=== PATIENT | male | born 1960 | race Caucasian/White ===

== ENCOUNTER → 2020-05-31 | Outpatient (CLI) | payer BC ==
--- NOTE | 2020-05-31 10:55 | MR ---
EXAMINATION TYPE: MR angio head wo con DATE OF EXAM: 05/31/2020 COMPARISON: NONE HISTORY: Intermittent shooting pains in the head, family hx brain aneurysm TECHNIQUE: Utilizing 3-D [id number] intracranial MRA of the [place] was performed. FINDINGS: The vertebrobasilar and carotid systems are patent. There is no sizable aneurysm or vascular malform ation. IMPRESSION: 1. No evidence of vascular malformation or sizable aneurysm.
--- NOTE | 2020-06-01 02:46 | MR ---
EXAMINATION TYPE: MR venography head wo con DATE OF EXAM: 05/31/2020 COMPARISON: None HISTORY: Intermittent shooting pains in the head, family hx brain aneurysm MR venographic images were obtained of the brain without contrast. Images show normal venous signal pattern in the superior sagittal sinus. There is normal venous patte rn in the straight sinus. There is bilateral venous flow in the jugular veins. There appears to be fi lling defect within the left side sigmoid sinus. This measures 2 cm in length with more than 50% occl usion of the brain. The remainder of exam is unremarkable. IMPRESSION: Exam shows evidence of nonocclusive thrombus in the left side sigmoid sinus.
== END | disposition home or self-care (01) ==
LOC: RADMRIMAIN 09:44
PROVIDERS: ATTEND Internal Medicine
DX: Z13.6 Encounter for screening for cardiovascular disorders (principal); G08 Intracranial and intraspinal phlebitis and thrombophlebitis; Z82.49 Family history of ischemic heart disease and other diseases of the circulatory system
CPT/HCPCS: 70544

== ENCOUNTER → 2021-04-07 | Outpatient (CLI) | payer BC ==
[~2021-04-07] MED LIST: CASIRIVIMAB (REGN10933) (EUA) 600 MG, IMDEVIMAB (REGN10987) (EUA) 600 MG in SODIUM CHLO... IVPB ONE; SODIUM CHLORIDE 0.9% 50 ML IVPB ONE; SODIUM CHLORIDE 0.9% 500 ML 500 ML in EMPTY BAG 1 BAG IV PRN
[2021-04-07 13:56] VITALS: BP 169/90; PULSE 80; RESP 16; TEMP 98.9
== END ==
LOC: PROCWHC3 13:31
PROVIDERS: ATTEND Internal Medicine
DX: U07.1 COVID-19 (principal); E66.9 Obesity, unspecified; I10 Essential (primary) hypertension; Z68.32 Body mass index [BMI] 32.0-32.9, adult
CPT/HCPCS: 96360; Q0243; M0243; 96361

== ENCOUNTER → 2022-10-30 | Outpatient (CLI) | payer BC ==
--- NOTE | 2022-10-30 09:31 | CT ---
EXAMINATION TYPE: CT soft tissue neck w con CT DLP: 678.10 mGycm, Automated exposure control for dose reduction was used. DATE OF EXAM: 10/30/2022 8:42 AM COMPARISON: None. CLINICAL INDICATION:Male, 62 years old with history of R22.1, Throat fullness, difficulty swallowing and speaking TECHNIQUE: Standard enhanced CT of the neck. Axial sections with coronal and sagittal reformats were obtained. Contrast used:100 mL of Isovue 300 with IV Contrast, Oral contrast used: none. FINDINGS: Brain: Visualized portions are grossly unremarkable. Orbits: Unremarkable Sinuses: Grossly unremarkable. Spaces of the neck: Clear and symmetric. Musculoskeletal: No acute osseous pathology. Lymph nodes: Multiple nonenlarged lymph nodes are seen along both anterior chains of the neck. Vascular structures: Visualized major arteries are patent without evidence of aneurysm. Thoracic Inlet/airway: Airway is patent. The lung apices are clear. No evidence for mediastinal mass in the visualized upper mediastinum aortic arch is unremarkable. Soft tissues/Thyroid: Thyroid and remainder of the soft tissues are unremarkable. Other: none. IMPRESSION No evidence for mass or abnormality to explain the patient's difficulty swallowing. Consider direct v isualization of the vocal cords and further workup possibly with modified barium swallow with speech pathology.
== END | disposition home or self-care (01) ==
LOC: RADCTMAIN 08:06
PROVIDERS: ATTEND Internal Medicine
DX: R22.1 Localized swelling, mass and lump, neck (principal)
CPT/HCPCS: 70491; Q9967

== ENCOUNTER → 2022-12-20 | Outpatient (CLI) | payer BC ==
--- NOTE | 2022-12-20 12:49 | FL ---
EXAMINATION TYPE: FL barium swallow DATE OF EXAM: 12/20/2022 CLINICAL INDICATION: 62-year-old male K21.9, reflux disease COMPARISON: None Total Fluoroscopy Time: 2 minutes 29 seconds DOSE AREA PRODUCT (DAP) UGY*M,MGY*CM: 581.9 51 images obtained. FINDINGS: The swallowing mechanism is normal. The patient has high shoulders. On the prone LÓPEZ drinking image, we note moderate hypertrophy of the cricopharyngeus muscle. Otherwise, the hypopharyngeal anatomy is preserved. The thoracic portion has a normal course and caliber. However, there are moderate to markedly blunted secondary stripping waves and mild tertiary peristaltic contractions noted. The mucosa is normal and no persistent filling defect is encountered. There is a tiny sliding hiatal hernia visualized. No gastroesophageal reflux seen during the course o f the exam. IMPRESSION: 1. Moderate hypertrophy of the cricopharyngeus which may partly contribute to the patient's symptoms. 2. Moderate esophageal dysmotility with significantly blunted primary and secondary peristaltic contr actions. This becomes more apparent when the patient is prone or supine. 3. Tiny sliding hiatal hernia. No gastroesophageal reflux seen during the course of the exam.
== END | disposition home or self-care (01) ==
LOC: RADUSWWP 10:46
PROVIDERS: ATTEND Otolaryngology
DX: K22.4 Dyskinesia of esophagus (principal); K21.9 Gastro-esophageal reflux disease without esophagitis; K44.9 Diaphragmatic hernia without obstruction or gangrene
CPT/HCPCS: 74220

== ENCOUNTER 2023-07-03 08:32 | Day surgery (SDC) | payer BC ==
[2023-07-03] MEDS ORDERED: LACTATED RINGERS 1,000 ML IV ONE (09:04)
[2023-07-03 09:30] VITALS: TEMP 97.4
[2023-07-03] MEDS ORDERED: fentaNYL (PF) 50 MCG/ML 2 ML AMP ONE (09:39)
[2023-07-03] MEDS ORDERED: MIDAZOLAM 2 MG/2 ML VIAL ONE (09:39)
[2023-07-03] MEDS ORDERED: PROPOFOL 10 MG/ML 20 ML VIAL IV ONE (09:39)
--- NOTE | 2023-07-03 10:01 | P.PCN ---
Date of Procedure: 07/03/23 Procedure(s) Performed: BRIEF HISTORY: Patient is a 63-year-old, pleasant, white male scheduled for an upper endoscopy as a part of evaluation of throat tightness and dysphagia for the last 5 years duration.. PROCEDURE PERFORMED: Esophagogastroduodenoscopy with biopsy PREOPERATIVE DIAGNOSIS: Throat tightness and dysphagia of 5 years duration. IV sedation per anesthesia. PROCEDURE: After informed consent was obtained, the patient was brought into the endoscopy unit. IV sedation was administered by Anesthesia under continuous monitoring. Initially the Olympus GIF-140 video endoscope was inserted into the mouth. Esophagus intubated without any difficulty. It was gradually advanced into the stomach and duodenum and carefully examined. The bulb and the second part of the duodenum appeared normal. The scope at this time was withdrawn to the stomach, adequately insufflated with air, and upon careful examination, mucosa of the antrum had mild gastritis and biopsies were done from this area. Mucosa of the, body, cardia and the fundus appeared normal. The scope was then withdrawn into the esophagus. The GE junction was located at 41 cm from the incisors. 2 superficial erosions at the GE junction consistent with LA grade B reflux esophagitis. The rest of the esophagus appeared normal. The proximal cervical esophagus appeared normal and the patient tolerated the procedure well. IMPRESSION: 1. Mild antral gastritis. 2. 2 superficial erosions at the GE junction consistent with LA grade B reflux esophagitis 3. Proximal cervical esophagus appeared normal with no evidence of esophageal stricture. RECOMMENDATIONS: The findings of this examination were discussed with the patient as well as his family. He was advised to follow with the biopsy results. Recommend a trial of Prilosec 20 mg daily for 3 months to see if he has any improvement in his symptoms.
[2023-07-03 10:45] VITALS: BP 121/69; PULSE 84; RESP 16
== END 2023-07-03 10:54 | disposition home or self-care (01) ==
LOC: ORWHC2ENDO 08:32
PROVIDERS: ATTEND Internal Medicine Gastroenterology
DX: K29.50 Unspecified chronic gastritis without bleeding (principal); K21.00 Gastro-esophageal reflux disease with esophagitis, without bleeding; I10 Essential (primary) hypertension; E78.5 Hyperlipidemia, unspecified; E03.9 Hypothyroidism, unspecified; F10.90 Alcohol use, unspecified, uncomplicated; F12.90 Cannabis use, unspecified, uncomplicated; Z79.890 Hormone replacement therapy; Z79.899 Other long term (current) drug therapy; Z98.890 Other specified postprocedural states
CPT/HCPCS: 88305; 43239; J2250; J3010; J2704

== ENCOUNTER → 2024-03-16 | Outpatient (CLI) | payer BC ==
--- NOTE | 2024-03-16 18:53 | CT ---
EXAMINATION TYPE: CT chest abdomen pelvis without contrast. CT angiogram chest abdomen and pelvis. CT DLP: 1281.5 mGycm, Automated exposure control for dose reduction was used. DATE OF EXAM: 03/16/2024 5:40 PM COMPARISON: 10/30/2022, 05/08/2011. CLINICAL INDICATION: Male, 63 years old with history of R07.2 PRECORDIAL PAIN; PHH, Chest and back pa in. TECHNIQUE: Noncontrast CT chest abdomen and pelvis followed by CT angiogram chest abdomen pelvis. Dissection protocol: Multiple axial CT images of the chest, abdomen, and pelvis were obtained prior a nd to the administration of IV contrast. 3-D reformats and maximum intensity projection format were p erformed on a separate workstation. Contrast used:100ml mL of Isovue 370 with IV Contrast, Oral contrast used: FINDINGS: ARTERIAL VASCULATURE: Ascending thoracic aorta and descending thoracic aorta are within normal limits for size. There is no evidence for intramural hematoma within the aorta on noncontrast imaging. Post contrast imaging demonstrates no evidence for dissection. The major vessels of the aortic arch are pa tent. The major vessels of the abdominal aorta are patent. PULMONARY ARTERIAL VASCULATURE: Normal caliber. No evidence of filling defect to suggest pulmonary em bolus. VENOUS SYSTEM: Unremarkable. LUNGS/ PLEURA: The lung parenchyma appears unremarkable. AIRWAY: Patent and unremarkable. HEART: Size within normal limits. MEDIASTINUM: No gross evidence of adenopathy. MUSCULOSKELETAL: No acute osseous abnormalities SOFT TISSUES/LYMPH NODES: Unremarkable. LOWER NECK: No significant findings. Abdomen: LIVER: Right hepatic lobe probable cyst. GALLBLADDER AND BILE DUCTS: Unremarkable. PANCREAS: Unremarkable. SPLEEN: Enlarged measuring up to to 15.4 cm. ADRENAL GLANDS: Unremarkable. KIDNEYS AND URETERS: No evidence of hydronephrosis or renal calculus. The ureters are unremarkable. PELVIS BLADDER: Bladder wall haziness with wall thickening circumferentially.r REPRODUCTIVE: Prostate is enlarged in size measuring 5.1 cm in transverse dimension. ABDOMEN & PELVIS STOMACH AND BOWEL: No evidence of bowel obstruction. Scattered colonic diverticula. The appendix is n ormal. PERITONEUM/RETROPERITONEUM: No evidence of pneumoperitoneum or free fluid. MUSCULOSKELETAL: No acute osseous abnormalities LYMPH NODES: No gross evidence for lymphadenopathy. SOFT TISSUE/ABDOMINAL WALL: Fat-containing right inguinal hernia. IMPRESSION: 1. No evidence for aortic dissection, aneurysm or occlusion. 2. Prostatomegaly correlate with serum PSA. 3. Circumferential bladder wall thickening with haziness from the bladder wall correlate for chronic bladder outlet obstruction and/or cystitis with urinalysis. 4. Splenomegaly. 5. Colonic diverticulosis. [facility], Workstation: [id number], 03/16/2024 6:51 PM
== END | disposition home or self-care (01) ==
LOC: RADCTMAIN 16:47
PROVIDERS: ATTEND Internal Medicine
DX: R07.2 Precordial pain
CPT/HCPCS: 71275; 74174

== ENCOUNTER 2024-03-20 17:28 | Emergency (ER) | payer BC ==
[2024-03-20 17:51] VITALS: TEMP 98.6
--- NOTE | 2024-03-20 18:53 | ED ---
General Adult HPI - General Source: patient, RN notes reviewed Mode of arrival: ambulatory Limitations: no limitations <Heriberto Cedeno - Last Filed: 03/21/24 20:29> <Radhames Torre - Last Filed: 03/21/24 22:35> - General Chief complaint: Abdominal Pain Stated complaint: Abdominal Pain Time Seen by Provider: 03/20/24 18:04 - History of Present Illness Initial comments: Patient is a 63-year-old male presenting to the emergency department with concerns with abdominal discomfort. Symptoms started less than a week ago. Discomfort started more in the back however now is more anteriorly. Discomfort is worse with food. Patient does drink alcohol around 4 times per week. Patient does have some nausea. Discomfort is mostly epigastric. Patient has noticed skin color changes today secondary to others bring it up to him. (Heriberto Cedeno) - Related Data Home Medications Medication Instructions Recorded Confirmed Famotidine 40 mg PO HS 06/28/23 03/20/24 Levothyroxine Sodium [Synthroid] 75 mcg PO DAILY 06/28/23 03/20/24 Metoprolol Succinate (ER) [Toprol 25 mg PO HS 06/28/23 03/20/24 Xl] Losartan [Cozaar] 25 mg PO DAILY 03/20/24 03/20/24 Pantoprazole [Protonix] 40 mg PO DAILY 03/20/24 03/20/24 Tirzepatide [Zepbound] 5 mg SQ TH 03/20/24 03/20/24 Allergies Allergy/AdvReac Type Severity Reaction Status Date / Time No Known Allergies Allergy Verified 03/20/24 18:42 Review of Systems ROS Other: All systems not noted in ROS Statement are negative. Constitutional: Denies: fever Eyes: Denies: eye pain ENT: Denies: ear pain Respiratory: Denies: cough, dyspnea Cardiovascular: Denies: chest pain Gastrointestinal: Reports: as per HPI, abdominal pain, nausea. Denies: diarrhea Genitourinary: Denies: dysuria Musculoskeletal: Reports: as per HPI <Heriberto Cedeno - Last Filed: 03/21/24 20:29> ROS Other: All systems not noted in ROS Statement are negative. <Radhames Torre - Last Filed: 03/21/24 22:35> ROS Statement: Those systems with pertinent positive or pertinent negative responses have been documented in the HPI. Past Medical History Past Medical History: Hyperlipidemia, Hypertension, Thyroid Disorder History of Any Multi-Drug Resistant Organisms: None Reported Past Surgical History: Hernia Repair Past Anesthesia/Blood Transfusion Reactions: No Reported Reaction Past Psychological History: No Psychological Hx Reported Smoking Status: Never smoker Past Alcohol Use History: Heavy Past Drug Use History: None Reported <Heriberto Cedeno - Last Filed: 03/21/24 20:29> General Exam Limitations: no limitations General appearance: alert, in no apparent distress Head exam: Present: atraumatic Eye exam: Present: scleral icterus ENT exam: Present: normal oropharynx Neck exam: Present: normal inspection Respiratory exam: Present: normal lung sounds bilaterally Cardiovascular Exam: Present: regular rate, normal rhythm GI/Abdominal exam: Present: soft, tenderness (Mild to moderate tenderness right upper quadrant and epigastrium) Extremities exam: Present: normal inspection Neurological exam: Present: alert Psychiatric exam: Present: normal affect, normal mood Skin exam: Present: other (Jaundice appearance) <Heriberto Cedeno - Last Filed: 03/21/24 20:29> General appearance: alert, in no apparent distress, anxious Head exam: Present: atraumatic, normocephalic, normal inspection Eye exam: Present: normal appearance, PERRL, EOMI. Absent: scleral icterus, conjunctival injection, periorbital swelling ENT exam: Present: normal exam, mucous membranes moist Neck exam: Present: normal inspection. Absent: tenderness, meningismus, lymphadenopathy Respiratory exam: Present: normal lung sounds bilaterally. Absent: respiratory distress, wheezes, rales, rhonchi, stridor Cardiovascular Exam: Present: regular rate, normal rhythm, normal heart sounds. Absent: systolic murmur, diastolic murmur, rubs, gallop, clicks GI/Abdominal exam: Present: soft, normal bowel sounds. Absent: distended, tenderness, guarding, rebound, rigid Extremities exam: Present: normal inspection, full ROM, normal capillary refill. Absent: tenderness, pedal edema, joint swelling, calf tenderness Back exam: Present: normal inspection Neurological exam: Present: alert, oriented X3, CN II-XII intact Psychiatric exam: Present: normal affect, normal mood Skin exam: Present: warm, dry, intact, normal color. Absent: rash <Radhames Torre - Last Filed: 03/21/24 22:35> Course <Radhames Torre - Last Filed: 03/21/24 22:35> Vital Signs 03/20/24 03/20/24 03/20/24 17:44 21:17 23:39 Temperature 98.6 F Pulse Rate 96 72 88 Respiratory 16 18 18 Rate Blood Pressure 91/58 103/68 112/75 O2 Sat by Pulse 98 97 97 Oximetry 03/21/24 01:53 Temperature Pulse Rate 95 Respiratory 18 Rate Blood Pressure 109/65 O2 Sat by Pulse 98 Oximetry - Reevaluation(s) Reevaluation #1: 03/20/24 23:45 Records reviewed (Radhames Torre) Reevaluation #2: 03/20/24 23:45 Symptoms unchanged (Radhames Torre) Reevaluation #3: 03/20/24 23:45 Patient informed of results and questions answered (Radhames Torre) Reevaluation #4: This appear possible at this patient's current condition could be contrast- induced nephropathy from CT scan complicated by drug-induced hepatitis (Radhames Torre) Reevaluation #5: Differential Abdominal Pain Men: Appendicitis, cholecystitis, diverticulosis, ischemic bowel, pancreatitis, hepatitis, UTI, gastroenteritis, AAA, incarcerated hernia, bowel obstruction, constipation, inflammatory bowel, hepatitis, peptic ulcer disease, splenic infarction, perforated viscus, testicular torsion, this is not meant to be an a ll-inclusive list (Radhames Torre) - Consultations Consultation #1: Mare Ruiz who accepts transfer (Radhames Trore) Medical Decision Making - Lab Data Result diagrams: 03/20/24 23:57 03/20/24 23:57 <Heriberto Cedeno - Last Filed: 03/21/24 20:29> - Lab Data Result diagrams: 03/20/24 23:57 03/20/24 23:57 - Radiology Data Radiology results: report reviewed (Gallbladder negative for acute disease), image reviewed <Radhames Torre - Last Filed: 03/21/24 22:35> - Medical Decision Making Was pt. sent in by a medical professional or institution (, PA, RAISE DRILL OPERATOR, urgent care, hospital, or group home...) When possible be specific @ -[No] Did you speak to anyone other than the patient for history (EMS, parent, family, police, friend...)? What history was obtained from this source @ -Patient's family is present helps provide history including new jaundice Did you review nursing and triage notes (agree or disagree)? Why? @ -[I reviewed and agree with nursing and triage notes] Were old charts reviewed (outside hosp., previous admission, EMS record, old EKG, old radiological studies, urgent care reports/EKG's, group home records)? Report findings @ -Previous labs reviewed including renal and liver function which is dramatically different from today Differential Diagnosis (chest pain, altered mental status, abdominal pain women, abdominal pain men, vaginal bleeding, weakness, fever, dyspnea, syncope, headache, dizziness, GI bleed, back pain, seizure, CVA, palpatations, mental health, musculoskeletal)? @ -[not applicable] EKG interpreted by me (3pts min.). @ -[As above] X-rays interpreted by me (1pt min.). @ -[None done] CT interpreted by me (1pt min.). @ -[None done] U/S interpreted by me (1pt. min.). @ -Pending What testing was considered but not performed or refused? (CT, X-rays, U/S, labs)? Why? @ -Sound is pending. Hepatitis panel is also pending What meds were considered but not given or refused? Why? @ -[None] Did you discuss the management of the patient with other professionals (professionals i.e. , PA, RAISE DRILL OPERATOR, lab, RT, psych nurse, social scientist, flight communications specialist, teacher, sales and service officer, case monitor)? Give summary @ -[No] Was smoking cessation discussed for >3mins.? @ -[No] Was critical care preformed (if so, how long)? @ -[No] Were there social determinants of health that impacted care today? How? (Homelessness, low income, unemployed, alcoholism, drug addiction, transportation, low edu. Level, literacy, decrease access to med. care, mcc, rehab)? @ -[No] Was there de-escalation of care discussed even if they declined (Discuss DNR or withdrawal of care, Hospice)? DNR status @ -[No] What co-morbidities impacted this encounter? (DM, HTN, Smoking, COPD, CAD, Cancer, CVA, ARF, Chemo, Hep., AIDS, mental health diagnosis, sleep apnea, morbid obesity)? @ -Patient does have history of alcohol use approximately 4 times a day Was patient admitted / discharged? Hospital course, mention meds given and route, prescriptions, significant lab abnormalities, going to OR and other pertinent info. @ -Patient presents with epigastric discomfort worse with eating. Patient is new jaundice with new onset hepatic and renal failure. Patient will be admitted or transferred, ultrasound pending. (Heriberot Cedeno) 63 male to the ER for evaluation with new jaundice abdominal pain that has been persistent for a few weeks recently started on Zepbound, for weight loss. Patient also had a CT scan with contrast looking at his aorta for his pain that was in his back and his chest, that was reported as normal patient had normal lab testing and presents today for evaluation of skin discoloration. Patient presents with jaundice undifferentiated here in this emergency department will be transferred for GI evaluation also found to be in renal failure (Radhames Torre) - Lab Data Lab Results 03/20/24 03/20/24 03/20/24 Range/Units 19:09 19:09 19:09 WBC 6.9 (3.8-10.6) k/uL RBC 4.30 (4.30-5.90) m/uL Hgb 13.3 (13.0-17.5) gm/dL Hct 39.0 (39.0-53.0) % MCV 90.7 (80.0-100.0) fL MCH 31.0 (25.0-35.0) pg MCHC 34.2 (31.0-37.0) g/dL RDW 13.4 (11.5-15.5) % Plt Count 175 (150-450) k/uL MPV 7.4 Neutrophils % 89 % Lymphocytes % 4 % Monocytes % 5 % Eosinophils % 0 % Basophils % 0 % Neutrophils # 6.1 (1.3-7.7) k/uL Lymphocytes # 0.3 L (1.0-4.8) k/uL Monocytes # 0.4 (0-1.0) k/uL Eosinophils # 0.0 (0-0.7) k/uL Basophils # 0.0 (0-0.2) k/uL PT 11.8 (10.0-12.5) sec INR 1.1 (<1.2) APTT 26.9 (22.0-30.0) sec Sodium 131 L (137-145) mmol/L Potassium 4.1 (3.5-5.1) mmol/L Chloride 98 (98-107) mmol/L Carbon Dioxide 21 L (22-30) mmol/L Anion Gap 12 mmol/L BUN 73 H (9-20) mg/dL Creatinine 4.88 H (0.66-1.25) mg/dL Est GFR (CKD-EPI)AfAm 14 (>60 ml/min/1.73 sqM) Est GFR (CKD-EPI)NonAf 12 (>60 ml/min/1.73 sqM) Glucose 104 H (74-99) mg/dL Plasma Lactic Acid Ray (0.7-2.0) mmol/L Calcium 8.3 L (8.4-10.2) mg/dL Phosphorus (2.5-4.5) mg/dL Magnesium 2.7 H (1.6-2.3) mg/dL Total Bilirubin 17.5 H* (0.2-1.3) mg/dL AST 73 H (17-59) U/L ALT 176 H (4-49) U/L Alkaline Phosphatase 362 H (38-126) U/L Ammonia (<30) umol/L Total Protein 6.6 (6.3-8.2) g/dL Albumin 3.6 (3.5-5.0) g/dL Amylase 78 (30-110) U/L Lipase 244 (23-300) U/L Urine Color Urine Appearance (Clear) Urine pH (5.0-8.0) Ur Specific [place] (1.001-1.035) Urine Protein (Negative) Urine Glucose (UA) (Negative) Urine Ketones (Negative) Urine Blood (Negative) Urine Nitrite (Negative) Urine Bilirubin (Negative) Urine Urobilinogen (<2.0) mg/dL Ur Leukocyte Esterase (Negative) Urine RBC (0-5) /hpf Urine WBC (0-5) /hpf Ur Squamous Epith Cells (0-4) /hpf Urine Bacteria (None) /hpf Acetaminophen ug/mL Serum Alcohol mg/dL Hepatitis A IgM Ab (Nonreactive) Hep Bs Antigen (Nonreactive) Hep B Core IgM Ab (Nonreactive) Hep C IgG Ab (Nonreactive) 03/20/24 03/20/24 03/20/24 Range/Units 19:09 19:46 23:57 WBC (3.8-10.6) k/uL RBC (4.30-5.90) m/uL Hgb (13.0-17.5) gm/dL Hct (39.0-53.0) % MCV (80.0-100.0) fL MCH (25.0-35.0) pg MCHC (31.0-37.0) g/dL RDW (11.5-15.5) % Plt Count (150-450) k/uL MPV Neutrophils % % Lymphocytes % % Monocytes % % Eosinophils % % Basophils % % Neutrophils # (1.3-7.7) k/uL Lymphocytes # (1.0-4.8) k/uL Monocytes # (0-1.0) k/uL Eosinophils # (0-0.7) k/uL Basophils # (0-0.2) k/uL PT (10.0-12.5) sec INR (<1.2) APTT (22.0-30.0) sec Sodium (137-145) mmol/L Potassium (3.5-5.1) mmol/L Chloride (98-107) mmol/L Carbon Dioxide (22-30) mmol/L Anion Gap mmol/L BUN (9-20) mg/dL Creatinine (0.66-1.25) mg/dL Est GFR (CKD-EPI)AfAm (>60 ml/min/1.73 sqM) Est GFR (CKD-EPI)NonAf (>60 ml/min/1.73 sqM) Glucose (74-99) mg/dL Plasma Lactic Acid Ray 0.7 (0.7-2.0) mmol/L Calcium (8.4-10.2) mg/dL Phosphorus (2.5-4.5) mg/dL Magnesium (1.6-2.3) mg/dL Total Bilirubin (0.2-1.3) mg/dL AST (17-59) U/L ALT (4-49) U/L Alkaline Phosphatase (38-126) U/L Ammonia <9 (<30) umol/L Total Protein (6.3-8.2) g/dL Albumin (3.5-5.0) g/dL Amylase (30-110) U/L Lipase (23-300) U/L Urine Color Dark Yellow Urine Appearance Turbid (Clear) Urine pH 5.5 (5.0-8.0) Ur Specific [place] 1.010 (1.001-1.035) Urine Protein 1+ H (Negative) Urine Glucose (UA) Negative (Negative) Urine Ketones Negative (Negative) Urine Blood Small H (Negative) Urine Nitrite Negative (Negative) Urine Bilirubin 2+ H (Negative) Urine Urobilinogen 2.0 (<2.0) mg/dL Ur Leukocyte Esterase Negative (Negative) Urine RBC 2 (0-5) /hpf Urine WBC 2 (0-5) /hpf Ur Squamous Epith Cells 1 (0-4) /hpf Urine Bacteria Occasional H (None) /hpf Acetaminophen ug/mL Serum Alcohol mg/dL Hepatitis A IgM Ab Nonreactive (Nonreactive) Hep Bs Antigen Nonreactive (Nonreactive) Hep B Core IgM Ab Nonreactive (Nonreactive) Hep C IgG Ab Nonreactive (Nonreactive) 03/20/24 03/20/24 Range/Units 23:57 23:57 WBC 5.6 (3.8-10.6) k/uL RBC 4.11 L (4.30-5.90) m/uL Hgb 12.6 L (13.0-17.5) gm/dL Hct 37.2 L (39.0-53.0) % MCV 90.4 (80.0-100.0) fL MCH 30.7 (25.0-35.0) pg MCHC 34.0 (31.0-37.0) g/dL RDW 13.5 (11.5-15.5) % Plt Count 172 (150-450) k/uL MPV 7.5 Neutrophils % 85 % Lymphocytes % 6 % Monocytes % 7 % Eosinophils % 1 % Basophils % 0 % Neutrophils # 4.7 (1.3-7.7) k/uL Lymphocytes # 0.3 L (1.0-4.8) k/uL Monocytes # 0.4 (0-1.0) k/uL Eosinophils # 0.0 (0-0.7) k/uL Basophils # 0.0 (0-0.2) k/uL PT (10.0-12.5) sec INR (<1.2) APTT (22.0-30.0) sec Sodium 129 L (137-145) mmol/L Potassium 4.2 (3.5-5.1) mmol/L Chloride 99 (98-107) mmol/L Carbon Dioxide 19 L (22-30) mmol/L Anion Gap 11 mmol/L BUN 75 H (9-20) mg/dL Creatinine 5.02 H (0.66-1.25) mg/dL Est GFR (CKD-EPI)AfAm 13 (>60 ml/min/1.73 sqM) Est GFR (CKD-EPI)NonAf 11 (>60 ml/min/1.73 sqM) Glucose 106 H (74-99) mg/dL Plasma Lactic Acid Ray (0.7-2.0) mmol/L Calcium 8.2 L (8.4-10.2) mg/dL Phosphorus 5.4 H (2.5-4.5) mg/dL Magnesium 2.7 H (1.6-2.3) mg/dL Total Bilirubin 16.0 H* (0.2-1.3) mg/dL AST 74 H (17-59) U/L ALT 164 H (4-49) U/L Alkaline Phosphatase 324 H (38-126) U/L Ammonia (<30) umol/L Total Protein 6.2 L (6.3-8.2) g/dL Albumin 3.4 L (3.5-5.0) g/dL Amylase (30-110) U/L Lipase (23-300) U/L Urine Color Urine Appearance (Clear) Urine pH (5.0-8.0) Ur Specific [place] (1.001-1.035) Urine Protein (Negative) Urine Glucose (UA) (Negative) Urine Ketones (Negative) Urine Blood (Negative) Urine Nitrite (Negative) Urine Bilirubin (Negative) Urine Urobilinogen (<2.0) mg/dL Ur Leukocyte Esterase (Negative) Urine RBC (0-5) /hpf Urine WBC (0-5) /hpf Ur Squamous Epith Cells (0-4) /hpf Urine Bacteria (None) /hpf Acetaminophen <10.0 ug/mL Serum Alcohol <10 mg/dL Hepatitis A IgM Ab (Nonreactive) Hep Bs Antigen (Nonreactive) Hep B Core IgM Ab (Nonreactive) Hep C IgG Ab (Nonreactive) Critical Care Time Critical Care Time: Yes Total Critical Care Time: 31 <Radhames Torre - Last Filed: 03/21/24 22:35> Disposition Is patient prescribed a controlled substance at d/c from ED?: No - Out of Hospital Transfer - Req. Specs Out of Hospital Transfer - Requested Specifics: Other Emergency Center <Heriberto Cedeno - Last Filed: 03/21/24 20:29> Is patient prescribed a controlled substance at d/c from ED?: No Time of Disposition: 23:55 <Radhames Torre - Last Filed: 03/21/24 22:35> Clinical Impression: Abdominal pain, Jaundice, Transaminitis, Renal failure Disposition: OTHER INSTITUTION NOT DEFINED Condition: Serious Referrals: Eva Sagastume MD [Primary Care Provider] - 1-2 days
[2024-03-20] MEDS: SODIUM CHLORIDE 0.9% 1,000 ML IV STA ×4 (19:06→23:52)
[2024-03-20] MEDS: ONDANSETRON 4 MG/2 ML VIAL IVP STA (19:07)
[2024-03-20] MEDS: PANTOPRAZOLE 40 MG/10 ML VIAL IVP STA (19:07)
[2024-03-20 19:22] LABS: Basophils % (A) 0 %; Eosinophils % (A) 0 %; HGB 13.3 gm/dL (13.0-17.5); Lymphocytes # (A) 0.3 k/uL (1.0-4.8); Lymphocytes % (A) 4 %; MCHC 34.2 g/dL (31.0-37.0); MCV 90.7 fL (80.0-100.0); Mean Platelet Volume 7.4; Monocytes # (A) 0.4 k/uL (0-1.0); Monocytes % (A) 5 %; Neutrophils # (A) 6.1 k/uL (1.3-7.7); Neutrophils % (A) 89 %; Platelet Count 175 k/uL (150-450); RDW 13.4 % (11.5-15.5); WBC 6.9 k/uL (3.8-10.6)
[2024-03-20 19:33] LABS: ALT 176 U/L (4-49); AST 73 U/L (17-59); African American GFR (CKD) 14 (>60 ml/min/1.73 sqM); Albumin 3.6 g/dL (3.5-5.0); Alkaline Phosphatase 362 U/L (38-126); Amylase 78 U/L (30-110); Anion Gap 12 mmol/L; Blood Urea Nitrogen 73 mg/dL (9-20); Calcium 8.3 mg/dL (8.4-10.2); Carbon Dioxide 21 mmol/L (22-30); Chloride 98 mmol/L (98-107); Glucose 104 mg/dL (74-99); Lipase 244 U/L (23-300); Magnesium 2.7 mg/dL (1.6-2.3); Non-African American GFR(CKD) 12 (>60 ml/min/1.73 sqM); Potassium 4.1 mmol/L (3.5-5.1); Sodium 131 mmol/L (137-145); Total Protein 6.6 g/dL (6.3-8.2)
[2024-03-20 19:42] LABS: Total Bilirubin 17.5 mg/dL (0.2-1.3)
[2024-03-20 20:19] LABS: INR 1.1 (<1.2); Partial Thromboplastin Time 26.9 sec (22.0-30.0); Prothrombin Time 11.8 sec (10.0-12.5)
[2024-03-20 20:49] LABS: Appearance,Urine Turbid (Clear); Bacteria,Urine Occasional /hpf; Bilirubin,Urine 2+ (Negative); Blood,Urine Small (Negative); Color,Urine Dark Yellow; Glucose,Urine (UA) Negative (Negative); Ketones,Urine Negative (Negative); Leukocyte Esterase,Urine Negative (Negative); Nitrite,Urine Negative (Negative); PH, Urine 5.5 (5.0-8.0); Protein,Urine 1+ (Negative); RBC,Urine 2 /hpf (0-5); Squamous Epithelial Cell,Urine 1 /hpf (0-4); WBC,Urine 2 /hpf (0-5)
[2024-03-20 21:17] VITALS: RESP 18
--- NOTE | 2024-03-20 21:20 | US ---
EXAMINATION TYPE: US gallbladder DATE OF EXAM: 03/20/2024 COMPARISON: CT 03/16/2024 CLINICAL INDICATION: Male, 63 years old with history of and pancrease, pain; abd pain TECHNIQUE: Grayscale and color Doppler imaging of the right upper quadrant was performed. FINDINGS: EXAM MEASUREMENTS: Liver Length: 14.99 cm Gallbladder Wall: 0.43 cm CBD: 0.42 cm Right Kidney: 13.5 x 5.6 x 6.5 cm WAX POURER NOTES: Pancreas: not well visualized due to distended stomach and bowel gas Liver: heterogeneous. Anechoic area seen in right lobe measuing 3.2 x 3.5 x 3.2cm consistent with c yst Gallbladder: echogenic material seen in neck and body that is nonmobile. Thickened wall seen with po ssible hypervascularity in wall? Evidence for sonographic Carey's sign: No CBD: wnl Right Kidney: wnl IMPRESSION: Pancreas not well-visualized. Right hepatic lobe cyst. [facility], , 03/20/2024 9:18 PM
[2024-03-20] MEDS: SODIUM CHLORIDE 0.9% 500 ML 500 ML IV STA (23:52)
[2024-03-21 00:18] LABS: Basophils % (A) 0 %; Eosinophils % (A) 1 %; HCT 37.2 % (39.0-53.0); HGB 12.6 gm/dL (13.0-17.5); Lymphocytes # (A) 0.3 k/uL (1.0-4.8); Lymphocytes % (A) 6 %; MCH 30.7 pg (25.0-35.0); MCV 90.4 fL (80.0-100.0); Mean Platelet Volume 7.5; Monocytes # (A) 0.4 k/uL (0-1.0); Monocytes % (A) 7 %; Neutrophils # (A) 4.7 k/uL (1.3-7.7); Neutrophils % (A) 85 %; Platelet Count 172 k/uL (150-450); RBC 4.11 m/uL (4.30-5.90); RDW 13.5 % (11.5-15.5); WBC 5.6 k/uL (3.8-10.6)
[2024-03-21 00:31] LABS: ALT 164 U/L (4-49); AST 74 U/L (17-59); Acetaminophen <10.0 ug/mL; African American GFR (CKD) 13 (>60 ml/min/1.73 sqM); Albumin 3.4 g/dL (3.5-5.0); Alcohol <10 mg/dL; Alkaline Phosphatase 324 U/L (38-126); Anion Gap 11 mmol/L; Blood Urea Nitrogen 75 mg/dL (9-20); Calcium 8.2 mg/dL (8.4-10.2); Carbon Dioxide 19 mmol/L (22-30); Chloride 99 mmol/L (98-107); Glucose 106 mg/dL (74-99); Magnesium 2.7 mg/dL (1.6-2.3); Non-African American GFR(CKD) 11 (>60 ml/min/1.73 sqM); Phosphorus 5.4 mg/dL (2.5-4.5); Potassium 4.2 mmol/L (3.5-5.1); Sodium 129 mmol/L (137-145); Total Protein 6.2 g/dL (6.3-8.2)
[2024-03-21 00:32] LABS: Lactic Acid, Venous 0.7 mmol/L (0.7-2.0)
[2024-03-21 01:54] VITALS: BP 109/65; PULSE 95
[2024-03-21 02:55] LABS: Hepatitis A Antibody IgM Nonreactive (Nonreactive); Hepatitis B Core IgM Nonreactive (Nonreactive); Hepatitis B Surface Antigen Nonreactive (Nonreactive); Hepatitis C IgG Antibody Nonreactive (Nonreactive)
== END 2024-03-21 02:03 | disposition other institution (70) ==
LOC: EC 17:28
CPT/HCPCS: 36415; 51798; 76705; 80053; 80074; 80143; 80320; 81001; 82140; 82150; 83605; 83690; 83735; 84100; 85025; 85610; 85730; 96361; 96374; 96375; 99291

== ENCOUNTER 2024-06-22 06:20 | Day surgery (SDC) | payer BC ==
[2024-06-17 11:46] VITALS: BMI 30.3
[~2024-06-22 06:20] MED LIST changes: -CASIRIVIMAB (REGN10933) (EUA) 600 MG, IMDEVIMAB (REGN10987) (EUA) 600 MG in SODIUM CHLO... IVPB ONE; +LIDOCAINE 1% (10MG/ML) FOR IV START INTRADERMA PRN; -SODIUM CHLORIDE 0.9% 50 ML IVPB ONE; -SODIUM CHLORIDE 0.9% 500 ML 500 ML in EMPTY BAG 1 BAG IV PRN; +droPERidol 5 MG/2 ML VIAL IVP ONE
[2024-06-22] MEDS: LACTATED RINGERS 1,000 ML IV SCH (06:56)
[2024-06-22] MEDS: IV FLUID CONTINUATION 1,000 ML IV ONE (06:56)
[2024-06-22] MEDS: ACETAMINOPHEN TAB 500 MG TAB PO PRN (07:09)
[2024-06-22] MEDS: ONDANSETRON 4 MG/2 ML VIAL IVP ONE (07:10)
[2024-06-22] MEDS: HEPARIN SODIUM,PORCINE 5,000 UNIT/ML 1 ML VIAL SQ PRN (07:10)
[2024-06-22] MEDS: DEXAMETHASONE SOD PHOSPHATE 4 MG/ML 1 ML VIAL IV ONE (07:10)
[2024-06-22] MEDS ORDERED: GLYCOPYRROLATE 0.2 MG/ML 2 ML VIAL ONE (07:24)
[2024-06-22] MEDS ORDERED: PROPOFOL 10 MG/ML 20 ML VIAL IV ONE (07:24)
[2024-06-22] MEDS ORDERED: NEOSTIGMINE 1 MG/ML 10 ML VIAL ONE (07:24)
[2024-06-22] MEDS ORDERED: KETOROLAC 15 MG/ML 1 ML VIAL ONE (07:24)
[2024-06-22] MEDS ORDERED: ROCURONIUM 10 MG/ML (5 ML VIAL) IV ONE (07:24)
[2024-06-22] MEDS ORDERED: HYDROmorphone (PF) 1 MG/ML ONE (07:24)
[2024-06-22] MEDS ORDERED: LIDOCAINE 4% LTA KIT (4 ML) TOPICAL ONE (07:24)
[2024-06-22] MEDS ORDERED: fentaNYL (PF) 50 MCG/ML 2 ML AMP ONE (07:24)
[2024-06-22] MEDS ORDERED: SUCCINYLCHOLINE CHLORIDE 200 MG/10 ML VIAL IV ONE (07:24)
[2024-06-22] MEDS ORDERED: MIDAZOLAM 2 MG/2 ML VIAL ONE (07:24)
[2024-06-22] MEDS ORDERED: LIDOCAINE 1% INJ 10MG/ML (20 ML MDV) ONE (07:24)
--- NOTE | 2024-06-22 07:28 | P.GSHP ---
History of Present Illness H&P Date: 06/22/24 Chief Complaint: Chronic cholecystitis 64-year-old male known to our office. Was seen 1 to 2 months ago. Had attacks of pain with elevated liver enzymes. Patient had studies showing gallbladder sludge with gallbladder wall thickening. He was transferred to [facility] and had MRCP and was seen by GI there. No ERCP took place. He was still unclear whether the symptoms were related to his Zepbound or choledocholithiasis. Patient has only had minimal symptoms since then. Previously he had been seen for biliary dyskinesia as well. No history of known liver disease. Past Medical History Past Medical History: GERD/Reflux, Hypertension, Sleep Apnea/CPAP/BIPAP, Thyroid Disorder Additional Past Medical History / Comment(s): Hx "blood clot in brain in 2019, was on blood thinners until Jan 2020, had MRI that showed it resolved". Liver infection Mar 2024, hospitalized at [facility]. "Achy in mornings". No device use for Sleep Apnea. History of Any Multi-Drug Resistant Organisms: None Reported Past Surgical History: Hernia Repair Past Anesthesia/Blood Transfusion Reactions: No Reported Reaction, Motion Sickness Smoking Status: Never smoker, Vaper - Past Family History Sister(s) Family Medical History: Cancer Additional Family Medical History / Comment(s): Lung cancer with mets at age 46, . Medications and Allergies Home Medications Medication Instructions Recorded Confirmed Type Famotidine 40 mg PO HS 06/28/23 06/22/24 History Levothyroxine Sodium [Synthroid] 75 mcg PO QAM 06/28/23 06/22/24 History Metoprolol Succinate (ER) [Toprol 25 mg PO HS 06/28/23 06/22/24 History Xl] Allergies Allergy/AdvReac Type Severity Reaction Status Date / Time No Known Allergies Allergy Verified 06/22/24 06:39 Surgical - Exam Vital Signs Temp Pulse Resp BP Pulse Ox 98.1 F 71 14 119/64 98 06/22/24 06:43 06/22/24 06:43 06/22/24 06:43 06/22/24 06:43 06/22/24 06:43 Physical exam: General: Well-developed, well-nourished HEENT: Normocephalic, sclerae nonicteric Abdomen: Nontender, nondistended Extremities: No edema Neuro: Alert and oriented Assessment and Plan (1) Chronic cholecystitis Narrative/Plan: Will proceed with laparoscopic, possible open cholecystectomy at this time. Risks of bleeding, infection, bile leak, bile duct injury, retained common bile duct stone, trocar injury, conversion to an open procedure, hernia, anesthesia related complications were reviewed. The patient understands and wishes to proceed. Current Visit: Yes Status: Acute Code(s): K81.1 - CHRONIC CHOLECYSTITIS SNOMED Code(s): 11131095
[2024-06-22] MEDS: BUPIVACAINE (PF) 0.25% 30 ML VIAL SQ ONE (07:49)
--- NOTE | 2024-06-22 08:39 | P.OP ---
Date of Procedure: 06/22/24 Procedure(s) Performed: PREOPERATIVE DIAGNOSIS: Chronic cholecystitis POSTOPERATIVE DIAGNOSIS: Same PROCEDURE: Laparoscopic cholecystectomy SURGEON: Brooke EBL: 20 cc ANESTHESIA: Gen. COMPLICATIONS: None OPERATIVE PROCEDURE: The patient was brought and placed on the operating room table in the supine position. The patient was placed under general anesthesia at that time. The abdomen was prepped and draped in the usual sterile fashion. A small vertical infraumbilical incision was made. The fascia was grasped with the Raysa forceps. The fascia was retracted anteriorly. The Veress needle was advanced into the peritoneal cavity. The saline drop test was normal. Insufflation took place up to 15 mmHg. A 5 mm optical trocar was advanced and the peritoneal cavity. 2 additional 5 mm trochars were placed in the right upper quadrant under direct visualization. A 12 mm trocar was advanced into the epigastric incision site. There were some loose adhesions to the gallbladder consistent with previous inflammatory changes. The gallbladder was retracted superiorly and laterally. The peritoneum overlying the infundibulum was bluntly dissected. The patient's cystic duct was visualized. The junction between the cystic duct common and hepatic duct was identified. The critical view of safety was achieved after blunt dissection. The cystic duct was then divided after placement of 3 12 mm clips on the patient's side and one on the specimen side. The cystic artery was identified and clipped as well. A small vessel was seen along the gallbladder fossa and clipped as well. The gallbladder was then removed from the liver bed using electrocautery. The gallbladder wall was definitely inflamed with edema present and some chronic scarring. The gallbladder was then removed from the epigastric trocar site with an Endo Catch bag. The gallbladder fossa was irrigated with saline. There was no evidence of any bleeding or biliary drainage seen. The fascia at the 12 millimeter site was closed using a Lyndon-Jas 0 Vicryl stitch. The trochars were then removed. The skin at all 4 sites was closed using a 4-0 Monocryl stitch. Skin glue was utilized on the incision sites. At the end of this procedure the sponge and needle counts were correct. DISPOSITION: Stable to the recovery room
[2024-06-22 08:56] VITALS: TEMP 97.2
[2024-06-22] MEDS: HYDROmorphone 0.5 MG/0.5 ML SYRINGE IVP PRN (09:36)
[2024-06-22] MEDS: LACTATED RINGERS 500 ML IV ONE ×2 (09:46→12:11)
[2024-06-22] MEDS ORDERED: IBUPROFEN 600 MG TAB PO SCH (10:00)
[2024-06-22] MEDS: traMADol 50 MG TAB PO STA (10:31)
[2024-06-22] MEDS ORDERED: ACETAMINOPHEN TAB 325 MG TAB PO SCH (12:00)
[2024-06-22 12:25] VITALS: BP 146/92; PULSE 55; RESP 14
[2024-06-22] MEDS: TAMSULOSIN 0.4 MG CAP.ER.24H PO STA (13:32)
== END 2024-06-22 13:56 | disposition home or self-care (01) ==
LOC: OR 06:20
PROVIDERS: ATTEND Surgery
DX: K81.2 Acute cholecystitis with chronic cholecystitis (principal); R74.8 Abnormal levels of other serum enzymes; K21.9 Gastro-esophageal reflux disease without esophagitis; I10 Essential (primary) hypertension; G47.33 Obstructive sleep apnea (adult) (pediatric); U07.0 Vaping-related disorder; G45.9 Transient cerebral ischemic attack, unspecified; E07.9 Disorder of thyroid, unspecified; Z79.890 Hormone replacement therapy; Z80.1 Family history of malignant neoplasm of trachea, bronchus and lung; Z98.890 Other specified postprocedural states; Z86.59 Personal history of other mental and behavioral disorders; Z79.899 Other long term (current) drug therapy
CPT/HCPCS: 47562; J2250; J0330; J1644; J1100; J2710; J0690; J2405; J2003; J3010; J1171 ×2; J1885; J2704; J0665; J1596; 88304

== ENCOUNTER → 2024-11-27 | Outpatient (CLI) | payer BC ==
--- NOTE | 2024-11-27 09:36 | US ---
EXAMINATION TYPE: US Aorta Screening DATE OF EXAM: 11/27/2024 COMPARISON: NONE CLINICAL INDICATION: Male, 64 years old with history of Z13.6 ENCOUNTER FOR SCREENING FOR CARDIOVASCU LAR D; Screening TECHNIQUE: Multiple sonographic images of the abdominal aorta are obtained with grayscale and color D oppler imaging. FINDINGS: EXAM MEASUREMENTS: Abdominal Aorta: Proximal: 2.7 x 2.3cm Mid: 2.0 x 1.9cm Distal: 1.9 x 1.8cm Bifurcation: Right Iliac: 1.3 x 1.1cm Left Iliac: 1.3 x 1.1cm OYSTERMAN NOTES: No plaque seen. No AAA on today's study IMPRESSION: > 2.5 to 3.0 cm Abdominal aortic aneurysm. Recommendation: Repeat Ultrasound in 10 year per Society o f Vascular Surgery Recommendations. [email or web address] [facility], , 11/27/2024 9:34 AM
== END | disposition home or self-care (01) ==
LOC: RADUSWWP 07:31
PROVIDERS: ATTEND Internal Medicine
DX: Z13.6 Encounter for screening for cardiovascular disorders (principal); I71.40 Abdominal aortic aneurysm, without rupture, unspecified
CPT/HCPCS: 76706